=== PATIENT | female | born 2005 | race Caucasian/White ===

== ENCOUNTER 2023-05-18 17:50 | Observation (INO) | payer BC ==
[2023-05-18 20:05] LABS: BASO % 0.2 % (0-2.0); EOS % 0.6 % (0-4.5); HEMATOCRIT 35.5 % (32.4-45.2); HEMOGLOBIN 11.3 GM/dL (10.7-15.3); LYMPH % 12.6 % (8-40); MCH 23.1 pg (25.7-33.7); MCHC 31.9 g/dl (32.0-36.0); MEAN CELL VOLUME 72.4 fl (80-96); MEAN PLT VOLUME 9.1 fl (7.5-11.1); MONO % 7.6 % (3.8-10.2); PLATELET COUNT 348 10^3/uL (134-434); WHITE BLOOD COUNT 12.4 K/mm3 (4.0-10.0)
[2023-05-18 20:10] LABS: INR 1.44 (0.83-1.09); PROTHROMBIN TIME (PATIENT) 16.6 SEC (9.7-13.0)
[2023-05-18 20:12] LABS: ACTIVATED PTT 33.6 SECONDS (25.2-36.5)
[2023-05-18 20:15] LABS: CHLORIDE 104 mmol/L (98-107); SODIUM 135 mmol/L (136-145)
[2023-05-18 20:18] LABS: CALCIUM 9.7 mg/dL (8.5-10.1)
[2023-05-18 20:19] LABS: ANION GAP 6 mmol/L (4-13); BLOOD UREA NITROGEN 12.3 mg/dL (7-18); CO2 25 mmol/L (21-32); GLUCOSE,RANDOM 88 mg/dL (74-106)
[2023-05-18 20:21] LABS: CREATININE 0.6 mg/dL (0.55-1.3)
[2023-05-18 20:22] LABS: SGOT/AST 14 U/L (15-37); SGPT/ALT 20 U/L (13-61)
[2023-05-18 20:23] LABS: BILIRUBIN,TOTAL 0.5 mg/dL (0.2-1); TOT PROT 8.1 g/dl (6.4-8.2)
[2023-05-18 20:25] LABS: ALK PHOS 59 U/L (45-117)
[2023-05-18 20:43] LABS: ANISOCYTOSIS 2+; MACROCYTOSIS 0; OVALOCYTE 1+
[2023-05-18 22:25] LABS: N-TERMINAL BNP 23.3 pg/ml (5-125)
[2023-05-19 03:00] LABS: EPI CELLS 18 /uL (0-25.1); HYALINE CASTS 0 /uL (0-3.1); URINE APPEARANCE CLEAR; URINE BACTERIA 173 /uL (0-1359); URINE BILIRUBIN NEGATIVE (NEGATIVE); URINE COLOR YELLOW; URINE GLUCOSE (UA) NEGATIVE (NEGATIVE); URINE KETONE NEGATIVE (NEGATIVE); URINE LEUK ESTERASE 2+ (NEGATIVE); URINE NITRITE NEGATIVE (NEGATIVE); URINE PROTEIN NEGATIVE (NEGATIVE); URINE RBC 4 /uL (0-23.9); URINE UROBILINOGEN 0.2 mg/dL (0.2-1.0); URINE WBC 77 /uL (0-25.8)
[2023-05-19 03:07] LABS: COCAINE, UR NEGATIVE (NEGATIVE); METHADONE, UR NEGATIVE (NEGATIVE); OPIATES, URI NEGATIVE (NEGATIVE); PHENCYCLIDINE,URINE NEGATIVE (NEGATIVE); URINE BARBITURATES NEGATIVE (NEGATIVE); URINE BENZODIAZEPINES NEGATIVE (NEGATIVE)
[2023-05-19 03:13] LABS: URINE AMPHETAMINES NEGATIVE (NEGATIVE)
[2023-05-19] MEDS ORDERED: ACETAMINOPHEN 325 MG TABLET (FP) PO PRN (04:14)
[2023-05-19 04:21] VITALS: BMI 30.7
[2023-05-19 08:09] LABS: BASO % 0.4 % (0-2.0); HEMATOCRIT 33.6 % (32.4-45.2); HEMOGLOBIN 10.5 GM/dL (10.7-15.3); LYMPH % 18.8 % (8-40); MCH 22.8 pg (25.7-33.7); MCHC 31.1 g/dl (32.0-36.0); MEAN CELL VOLUME 73.1 fl (80-96); MEAN PLT VOLUME 9.4 fl (7.5-11.1); MONO % 7.9 % (3.8-10.2); NEUT % 71.9 % (42.8-82.8); PLATELET COUNT 283 10^3/uL (134-434); RDW 22.2 % (11.6-15.6); WHITE BLOOD COUNT 10.8 K/mm3 (4.0-10.0)
[2023-05-19 08:14] LABS: POTASSIUM 3.9 mmol/L (3.5-5.1)
[2023-05-19 08:21] LABS: ALBUMIN 3.7 g/dl (3.4-5.0); CALCIUM 9.3 mg/dL (8.5-10.1)
[2023-05-19 08:22] LABS: BLOOD UREA NITROGEN 8.6 mg/dL (7-18)
[2023-05-19 08:24] LABS: PHOSPHOROUS 4.6 mg/dL (2.5-4.9)
[2023-05-19 08:25] LABS: CREATININE 0.5 mg/dL (0.55-1.3)
[2023-05-19 08:26] LABS: BILIRUBIN,TOTAL 0.8 mg/dL (0.2-1); TOT PROT 7.4 g/dl (6.4-8.2)
[2023-05-19] MEDS ORDERED: ENOXAPARIN NA (PORCINE) 40 MG/0.4 ML DISP.SYRIN SQ SCH (10:00)
[2023-05-19 15:51] VITALS: BP 122/74; PULSE 88; RESP 15; TEMP 98.4
== END 2023-05-19 16:49 | disposition home or self-care (01) ==
LOC: JER 17:50 → JERBED 22:14 → J4W 05-19 03:04
PROVIDERS: ADMIT Internal Medicine; ATTEND Internal Medicine
PROC: 3E023GC Introduction of Other Therapeutic Substance into Muscle, Percutaneous Approach (ICD-10-PCS; principal; 2023-05-18)
DX: R07.89 Other chest pain (principal); D72.829 Elevated white blood cell count, unspecified; Q24.9 Congenital malformation of heart, unspecified; D50.9 Iron deficiency anemia, unspecified; Z29.89 Encounter for other specified prophylactic measures
CPT/HCPCS: 0241U-QW; 36415; 71046-TC-FY; 71250-TC; 80053; 80307; 81003; 83735; 83880; 84100; 84439; 84443; 84484; 84702; 85025; 85379; 85610; 85730; 86850; 86900; 86901; 87086; 93005; 93010; 93306-TC; 99285-25; G0378